=== PATIENT | female | born 1945 | race African-American/Black ===

== ENCOUNTER 2022-05-16 20:50 | Emergency (ER) | payer MEDICARE, MEDICAID ==
[~2022-05-16] VITALS: Ht 167.6 cm; Wt 82.0 kg
[2022-05-16] MEDS ORDERED: DIAZEPAM 5 MG TABLET PO NR (22:45)
[2022-05-16] MEDS ORDERED: LIDOCAINE 5% PATCH TOP SCH (22:45)
[2022-05-16] MEDS ORDERED: KETOROLAC 60MG/2ML VIAL IM ONE (22:45)
[2022-05-16] MEDS ORDERED: DIAZEPAM 2 MG TABLET PO ONE (22:45)
[2022-05-17] MEDS ORDERED: LIDO700A30 TP (01:20)
[2022-05-17] MEDS ORDERED: IBUP-2029 MT (01:20)
[2022-05-17 01:30] VITALS: BP 138/57
== END 2022-05-17 02:00 | disposition home or self-care (01) ==
LOC: ER 20:50
DX: M54.31 Sciatica, right side (principal); I10 Essential (primary) hypertension; M10.9 Gout, unspecified
CPT/HCPCS: 72170; 93970; 96372; 99284; J1885